=== PATIENT | female | born 1985 | race Caucasian/White ===

== ENCOUNTER → 2019-03-25 | Outpatient (CLI) | payer OTHER ==
[2019-03-25 13:51] LABS: BASO # 0.1 10^3/uL (0.0-0.2); EOS # 0.3 10^3/uL (0.0-0.50); HEMATOCRIT 40.5 % (36.0-47.0); HEMOGLOBIN 14.2 g/dl (12.0-15.5); LYMPH # 1.7 10^3/uL (1.5-4.5); LYMPH % 26.9 % (24.0-44.0); MEAN CORPUSCULAR HEMOGLOBIN 32.3 pg (27.0-33.0); MEAN CORPUSCULAR HGB CONC 35.1 g/dl (32.0-36.5); MEAN CORPUSCULAR VOLUME 92.3 fl (80.0-96.0); MONO # 0.5 10^3/uL (0.0-0.8); MONO % 8.6 % (0.0-5.0); NEUTROPHILS # 3.7 10^3/uL (1.8-7.7); NEUTROPHILS % 59.2 % (36.0-66.0); PLATELET COUNT, AUTOMATED 265 10^3/uL (150-450); RED BLOOD COUNT 4.39 10^6/uL (4.00-5.40); WHITE BLOOD COUNT 6.3 10^3/uL (4.0-10.0)
[2019-03-25 14:22] LABS: ALBUMIN 4.1 GM/DL (3.2-5.2); ALT/SGPT 16 U/L (12-78); BILIRUBIN,TOTAL 0.5 MG/DL (0.2-1.0); BLOOD UREA NITROGEN 15 MG/DL (7-18); CALCIUM LEVEL 9.1 MG/DL (8.5-10.1); CARBON DIOXIDE LEVEL 27 MEQ/L (21-32); CHLORIDE LEVEL 105 MEQ/L (98-107); CHOLESTEROL LEVEL 176 MG/DL (<200); CHOLESTEROL RISK RATIO 2.666 (<5); FREE T4 1.11 NG/DL (0.76-1.46); GLOMERULAR FILTRATION RATE > 60.0 (>60); GLUCOSE, FASTING 81 MG/DL (70-100); HDL CHOLESTEROL 66 MG/DL (>40); LDL CHOLESTEROL 90 MG/DL (<100); NON-HDL-C 110 MG/DL; POTASSIUM SERUM 4.3 MEQ/L (3.5-5.1); SODIUM LEVEL 138 MEQ/L (136-145); TOTAL PROTEIN 6.9 GM/DL (6.4-8.2); TRIGLYCERIDES LEVEL 100 MG/DL (<150)
== END ==
LOC: M LAB 12:43
PROVIDERS: ATTEND Physician Assistant
DX: I34.1 Nonrheumatic mitral (valve) prolapse (principal)

== ENCOUNTER → 2019-05-12 | Outpatient (CLI) | payer OTHER ==
[2019-05-12 14:36] LABS: ESTRADIOL 455.4 PG/ML; PROGESTERONE 37.1 NG/ML
== END ==
LOC: M LAB 13:14
PROVIDERS: ATTEND Obstetrics & Gynecology Reproductive Endocrinology
DX: Z31.41 Encounter for fertility testing (principal)

== ENCOUNTER → 2019-05-19 | Outpatient (CLI) | payer OTHER ==
[2019-05-19 09:30] LABS: HCG, SERUM QUANTITATIVE < 1.0 MIU/ML
[2019-05-19 09:38] LABS: PROGESTERONE 6.91 NG/ML
== END ==
LOC: M LAB 08:07
PROVIDERS: ATTEND Obstetrics & Gynecology Reproductive Endocrinology
DX: Z32.00 Encounter for pregnancy test, result unknown (principal)

== ENCOUNTER → 2019-12-08 | Outpatient (CLI) | payer OTHER ==
[2019-12-08 16:22] LABS: FREE T4 0.95 NG/DL (0.76-1.46); THYROID STIMULATING HORMONE 3.6 uIU/ML (0.358-3.740)
== END ==
LOC: M LAB 15:14
PROVIDERS: ATTEND Family Medicine
DX: Z13.29 Encounter for screening for other suspected endocrine disorder (principal)

== ENCOUNTER → 2019-12-28 | Outpatient (CLI) | payer OTHER ==
[2019-12-28 16:35] LABS: BASO # 0.1 10^3/uL (0.0-0.2); BASO % 1.8 % (0.0-1.0); EOS # 0.3 10^3/uL (0.0-0.5); EOS % 5.8 % (0.0-3.0); LYMPH # 2.1 10^3/uL (1.5-5.0); LYMPH % 38.2 % (24.0-44.0); MEAN CORPUSCULAR VOLUME 91.3 fl (80.0-96.0); MONO # 0.5 10^3/uL (0.0-0.8); MONO % 8.9 % (0.0-5.0); NEUTROPHILS # 2.5 10^3/uL (1.5-8.5); NEUTROPHILS % 45.1 % (36.0-66.0); PLATELET COUNT, AUTOMATED 273 10^3/uL (150-450); RED BLOOD COUNT 4.38 10^6/uL (4.00-5.40); WHITE BLOOD COUNT 5.5 10^3/uL (4.0-10.0)
== END ==
LOC: M LAB 16:05
PROVIDERS: ATTEND Family Medicine
DX: D72.1 Eosinophilia (principal)

== ENCOUNTER → 2020-01-14 | Outpatient (CLI) | payer OTHER | LOC: M LAB 11:35 | PROVIDERS: ATTEND Obstetrics & Gynecology Reproductive Endocrinology | DX: E28.9 Ovarian dysfunction, unspecified (principal) ==

== ENCOUNTER → 2020-01-20 | Outpatient (CLI) | payer OTHER ==
[2020-01-20 13:40] LABS: HCG, SERUM QUANTITATIVE < 1.0 MIU/ML
[2020-01-20 14:43] LABS: PROGESTERONE 8.13 NG/ML
== END ==
LOC: M LAB 12:57
PROVIDERS: ATTEND Obstetrics & Gynecology Reproductive Endocrinology
DX: Z32.00 Encounter for pregnancy test, result unknown (principal)

== ENCOUNTER → 2020-02-09 | Outpatient (CLI) | payer OTHER ==
[2020-02-09 15:25] LABS: PROGESTERONE 8.03 NG/ML
== END ==
LOC: M LAB 13:53
PROVIDERS: ATTEND Obstetrics & Gynecology Reproductive Endocrinology
DX: E28.9 Ovarian dysfunction, unspecified (principal)

== ENCOUNTER → 2020-08-31 | Outpatient (CLI) | payer OTHER ==
[2020-08-31 11:54] LABS: BASO # 0.1 10^3/uL (0.0-0.2); BASO % 1.4 % (0.0-1.0); EOS # 0.2 10^3/uL (0.0-0.5); EOS % 3.7 % (0.0-3.0); HEMATOCRIT 41.1 % (36.0-47.0); HEMOGLOBIN 14.1 g/dl (12.0-15.5); LYMPH # 1.6 10^3/uL (1.5-5.0); LYMPH % 25.1 % (24.0-44.0); MEAN CORPUSCULAR HEMOGLOBIN 31.1 pg (27.0-33.0); MEAN CORPUSCULAR HGB CONC 34.3 g/dl (32.0-36.5); MEAN CORPUSCULAR VOLUME 90.5 fl (80.0-96.0); MONO # 0.4 10^3/uL (0.0-0.8); MONO % 6.7 % (0.0-5.0); NEUTROPHILS % 62.9 % (36.0-66.0); PLATELET COUNT, AUTOMATED 273 10^3/uL (150-450); RED BLOOD COUNT 4.54 10^6/uL (4.00-5.40); WHITE BLOOD COUNT 6.3 10^3/uL (4.0-10.0)
[2020-08-31 12:27] LABS: ALT/SGPT 19 U/L (12-78); AMYLASE 65 U/L (25-115); BILIRUBIN,TOTAL 0.6 MG/DL (0.2-1.0); BLOOD UREA NITROGEN 15 MG/DL (7-18); CALCIUM LEVEL 9.3 MG/DL (8.5-10.1); CARBON DIOXIDE LEVEL 30 MEQ/L (21-32); CHLORIDE LEVEL 106 MEQ/L (98-107); CHOLESTEROL LEVEL 164 MG/DL (<200); CHOLESTEROL RISK RATIO 2.376 (<5); CREATININE FOR GFR 0.78 MG/DL (0.55-1.30); GLOMERULAR FILTRATION RATE > 60.0 (>60); GLUCOSE, FASTING 83 MG/DL (70-100); HDL CHOLESTEROL 69 MG/DL (>40); LDL CHOLESTEROL 81 MG/DL (<100); LIPASE 96 U/L (73-393); NON-HDL-C 95 MG/DL; POTASSIUM SERUM 4.5 MEQ/L (3.5-5.1); SODIUM LEVEL 139 MEQ/L (136-145); TOTAL PROTEIN 6.9 GM/DL (6.4-8.2); TRIGLYCERIDES LEVEL 71 MG/DL (<150)
[2020-08-31 12:33] LABS: TOTAL 25(OH) VITAMIN D 25.2 NG/ML (30.0-100.0)
== END ==
LOC: M LAB 10:32
PROVIDERS: ATTEND Family Medicine
DX: R10.11 Right upper quadrant pain (principal); F42.9 Obsessive-compulsive disorder, unspecified; Z13.0 Encounter for screening for diseases of the blood and blood-forming organs and certain disorders involving the immune mechanism; Z13.220 Encounter for screening for lipoid disorders

== ENCOUNTER → 2020-09-06 | Outpatient (CLI) | payer OTHER ==
--- NOTE | 2020-09-06 08:36 | REP ---
INDICATION: RUQ ABD PAIN COMPARISON: None. TECHNIQUE: Real time prado scale ultrasound examination using curved array transducer. FINDINGS: Liver is normal in contour, size, and echogenicity without focal hepatic lesions identified. Pancreas is incompletely evaluated due to interposed bowel gas. The gallbladder is normal and without gallstones, wall thickening, or pericholecystic fluid. No biliary ductal dilatation is appreciated and the common bile duct measures 4.0 mm diameter. Right kidney is normal in reniform shape without hydronephrosis and measures 8.9 x 5.6 x 3.3 cm. No ascites in the visualized right upper quadrant. IMPRESSION: Normal limited right upper quadrant ultrasound <Electronically signed by Marty Dean > 09/06/20 [id number]
== END ==
LOC: M RAD 08:03
PROVIDERS: ATTEND Family Medicine
DX: R10.11 Right upper quadrant pain (principal)

== ENCOUNTER → 2020-10-05 | Outpatient (CLI) | payer OTHER ==
[2020-10-05 11:05] LABS: ESTRADIOL 2185.1 PG/ML; LUTEINIZING HORMONE 16.3 mIU/mL; PROGESTERONE 1.73 NG/ML
== END ==
LOC: M LAB 09:47
PROVIDERS: ATTEND Obstetrics & Gynecology Reproductive Endocrinology
DX: E28.9 Ovarian dysfunction, unspecified (principal)

== ENCOUNTER → 2020-10-13 | Outpatient (CLI) | payer OTHER ==
[2020-10-13 12:10] LABS: PROGESTERONE 58.11 NG/ML
[2020-10-17 10:15] LABS: ESTRADIOL 1420.9 PG/ML
== END ==
LOC: M LAB 11:11
PROVIDERS: ATTEND Obstetrics & Gynecology Reproductive Endocrinology
DX: E28.9 Ovarian dysfunction, unspecified (principal)

== ENCOUNTER 2021-01-04 17:51 | Emergency (ER) | payer OTHER ==
[~2021-01-04] VITALS: Ht 157.5 cm; Wt 46.7 kg
[2021-01-04] MEDS ORDERED: BUSP10TA (18:15)
[2021-01-04] MEDS ORDERED: LEXA1TAB (18:15)
--- NOTE | 2021-01-04 19:39 | REP ---
INDICATION: ruq pain COMPARISON: 09/06/2020 TECHNIQUE: Real time prado scale ultrasound examination using curved array transducer. FINDINGS: Liver is normal in contour, size, and echogenicity without focal hepatic lesions identified. Pancreas is incompletely evaluated due to interposed bowel gas. The gallbladder is distended but without gallstones, wall thickening or pericholecystic fluid. No biliary ductal dilatation is appreciated and the common bile duct measures 3.2 mm diameter. Right kidney is normal in reniform shape without hydronephrosis and measures 9.7 x 5.1 x 3.0 cm. No ascites in the visualized right upper quadrant. IMPRESSION: Distended gallbladder is nonspecific. No further sonographic evidence to suggest acute cholecystitis. Correlation is recommended. <Electronically signed by Marty Dean > 01/04/211934
[2021-01-04 19:46] LABS: BASO # 0.1 10^3/uL (0.0-0.2); BASO % 1.7 % (0.0-1.0); EOS # 0.3 10^3/uL (0.0-0.5); EOS % 5.2 % (0.0-3.0); HEMATOCRIT 40.9 % (36.0-47.0); HEMOGLOBIN 14.2 g/dl (12.0-15.5); LYMPH % 33.8 % (24.0-44.0); MEAN CORPUSCULAR HEMOGLOBIN 31.7 pg (27.0-33.0); MEAN CORPUSCULAR HGB CONC 34.7 g/dl (32.0-36.5); MEAN CORPUSCULAR VOLUME 91.3 fl (80.0-96.0); MONO # 0.5 10^3/uL (0.0-0.8); MONO % 8.6 % (2.0-8.0); NEUTROPHILS # 2.9 10^3/uL (1.5-8.5); NEUTROPHILS % 50.5 % (36.0-66.0); PLATELET COUNT, AUTOMATED 255 10^3/uL (150-450); RED BLOOD COUNT 4.48 10^6/uL (4.00-5.40); WHITE BLOOD COUNT 5.8 10^3/uL (4.0-10.0)
[2021-01-04 20:17] LABS: ALBUMIN 3.8 GM/DL (3.2-5.2); ALT/SGPT 14 U/L (12-78); BILIRUBIN,DIRECT 0.1 MG/DL (0.0-0.2); BILIRUBIN,TOTAL 0.4 MG/DL (0.2-1.0); BLOOD UREA NITROGEN 7 MG/DL (7-18); CALCIUM LEVEL 9.1 MG/DL (8.5-10.1); CARBON DIOXIDE LEVEL 26 MEQ/L (21-32); CHLORIDE LEVEL 110 MEQ/L (98-107); CREATININE FOR GFR 0.71 MG/DL (0.55-1.30); GLOMERULAR FILTRATION RATE > 60.0 (>60); GLUCOSE, FASTING 86 MG/DL (70-100); LIPASE 153 U/L (73-393); POTASSIUM SERUM 4.1 MEQ/L (3.5-5.1); SODIUM LEVEL 141 MEQ/L (136-145); TOTAL PROTEIN 6.7 GM/DL (6.4-8.2)
[2021-01-04] MEDS ORDERED: ISOVUE-370 76% 100ML VIAL As Ordered ONE (20:30)
--- NOTE | 2021-01-04 21:02 | REPVR ---
PROCEDURE INFORMATION: Exam: CT Abdomen And Pelvis With Contrast Exam date and time: 01/04/2021 8:34 PM Age: 35 years old Clinical indication: Abdominal pain; Additional info: Upper abd pain TECHNIQUE: Imaging protocol: Computed tomography of the abdomen and pelvis with contrast. Radiation optimization: All CT scans at this facility use at least one of these dose optimization techniques: automated exposure control; mA and/or kV adjustment per patient size (includes targeted exams where dose is matched to clinical indication); or iterative reconstruction. Contrast material: ISOVUE 370; Contrast volume: 100 ml; Contrast route: INTRAVENOUS (IV); COMPARISON: Abdomen, limited US 09/06/2020 8:27 AM FINDINGS: Liver: Normal. No mass. Gallbladder and bile ducts: Hydropic gallbladder. Mild gallbladder wall thickening. No calculi demonstrated. Clinical correlation to exclude acalculous cholecystitis suggested. Pancreas: Normal. No ductal dilation. Spleen: Normal. No splenomegaly. Adrenal glands: Normal. No mass. Kidneys and ureters: Normal. No hydronephrosis. Stomach and bowel: Unremarkable. No obstruction. No mucosal thickening. Appendix: No evidence of appendicitis. Intraperitoneal space: There is minimal fluid in the cul-de-sac most likely physiologic. Clinical correlation to exclude other causes of cul-de-sac fluid suggested. Vasculature: Unremarkable. No abdominal aortic aneurysm. Lymph nodes: Unremarkable. No enlarged lymph nodes. Urinary bladder: Unremarkable as visualized. Reproductive: 2 cm involuting corpus luteal cyst right ovary. Sub septate uterus. Bones/joints: Mild central spinal stenosis L4-L5. Soft tissues: Unremarkable. IMPRESSION: 1. Hydropic gallbladder. Mild gallbladder wall thickening. No calculi demonstrated. Clinical correlation to exclude acalculous cholecystitis suggested. 2. Otherwise unremarkable. Electronically signed by: Errol Bateman On 01/04/2021 21:02:19 PM
[2021-01-04] MEDS ORDERED: KETOROLAC 30 MG/ML 1ML VIAL IV ONE (21:15)
[2021-01-04] MEDS ORDERED: metroNIDAZOLE (FLAGYL) 500MG TABLET PO ONE (21:20)
[2021-01-04] MEDS ORDERED: CIPROFLOXACIN 500MG TABLET PO ONE (21:20)
[2021-01-04] MEDS ORDERED: FLAG500T PO (21:24)
[2021-01-04] MEDS ORDERED: CIPR-249 PO (21:24)
[2021-01-04 22:11] VITALS: BP 115/68
== END 2021-01-04 22:00 | disposition home or self-care (01) ==
LOC: M ED 17:51
DX: K81.1 Chronic cholecystitis (principal); M48.061 Spinal stenosis, lumbar region without neurogenic claudication; F41.9 Anxiety disorder, unspecified; Z88.0 Allergy status to penicillin; Z79.899 Other long term (current) drug therapy
CPT/HCPCS: 74177; 76705; 80048; 80076; 81001; 83690; 85025; 96374; 99283; J1885; Q9967

== ENCOUNTER → 2021-01-26 | Outpatient (CLI) | payer OTHER ==
[~2021-01-26] MED LIST: BUSP10TA; CIPR-249 PO; FLAG500T PO; LEXA1TAB
== END ==
LOC: M LAB 13:10
PROVIDERS: ATTEND Physician Assistant
DX: R10.11 Right upper quadrant pain (principal)

== ENCOUNTER → 2021-02-14 | Outpatient (CLI) | payer OTHER ==
[~2021-02-14] MED LIST changes: +COQ-100C5 PO; +PREN200C PO; +PROBCAP14 PO
--- NOTE | 2021-02-15 08:57 | ECGEPIP ---
[facility] Test Date: 2021-02-14 Pat Name: ROLAND DAWN Department: Room: - Gender: Female Visual Lead: lilly : 1985 Requested By: Zachary ELLER Order Number: [id number] Reading MD: Julio C Ritchie Measurements Intervals [place] Rate: 72 P: 66 HI: 144 QRS: 79 QRSD: 78 T: 60 QT: 394 QTc: 431 Interpretive Statements Sinus rhythm with premature supraventricular complexes Comparison tracing not on file Electronically Signed on 02-15-2021 8:57:23 EDT by Julio C Ritchie
== END ==
LOC: M RAD 12:03
PROVIDERS: ATTEND Physician Assistant
DX: R10.11 Right upper quadrant pain (principal)

== ENCOUNTER 2021-02-16 08:22 | Day surgery (SDC) | payer OTHER ==
[~2021-02-16] VITALS: Ht 154.9 cm; Wt 46.9 kg
[~2021-02-16 08:22] MED LIST changes: +LR 1,000 ML IV ONE
[2021-02-16] MEDS ORDERED: fentaNYL 100 MCG/2 ML INJECTION (J3010) As Ordered ONE ×3 (08:23→11:59)
[2021-02-16] MEDS ORDERED: LIDOCAINE 2% 100MG/5ML SDV (FOR ANES.) As Ordered ONE (08:23)
[2021-02-16] MEDS ORDERED: dexameTHASONE 4 MG/ML 1ML VIAL (J1100 PER 1MG) As Ordered ONE (08:23)
[2021-02-16] MEDS ORDERED: ACETAMINOPHEN 1000MG 100ML IV BTL (OFIRMEV) (J0131 PER 10MG) As Ordered ONE (08:23)
[2021-02-16] MEDS ORDERED: propofoL 200 MG/20 ML VIAL As Ordered ONE (08:23)
[2021-02-16] MEDS ORDERED: ONDANSETRON 4MG/2ML VIAL As Ordered ONE ×2 (08:23→12:09)
[2021-02-16] MEDS ORDERED: MIDAZOLAM INJ 2MG/2ML VIAL (J2250 PER 1MG) As Ordered ONE (08:23)
[2021-02-16] MEDS ORDERED: KETOROLAC 60MG 2ML VIAL As Ordered ONE (08:23)
[2021-02-16] MEDS ORDERED: ROCURONIUM BROMIDE 50 MG/5 ML VIAL As Ordered ONE (08:23)
[2021-02-16] MEDS ORDERED: SUGAMMADEX SODIUM 500 MG/5 ML VIAL (BRIDION) As Ordered ONE (08:23)
[2021-02-16] MEDS ORDERED: BUPIVACAINE/EPIN 0.25% 30 ML VIAL As Ordered ONE (10:24)
[2021-02-16] MEDS ORDERED: GLYCOPYRROLATE INJ 0.2 MG/ML 2 ML VIAL As Ordered ONE (11:16)
[2021-02-16] MEDS: fentaNYL 100 MCG/2 ML INJECTION (J3010) IV PRN ×4 (11:59→12:14)
[2021-02-16] MEDS ORDERED: NORCO, ANEXSIA 5/325MG TABLET (HYDROcodone/ACETAMINOPHEN) PO PRN (12:15)
[2021-02-16] MEDS ORDERED: LR 1,000 ML IV SCH (12:15)
[2021-02-16] MEDS ORDERED: oxyCODONE 5MG TAB PO PRN (12:15)
[2021-02-16] MEDS ORDERED: ONDANSETRON 4MG/2ML VIAL IV PRN (12:15)
[2021-02-16] MEDS: HYDROMORPHONE HCL 0.5 MG/ 0.5 ML SYRINGE (J1170 PER 1) IV PRN ×4 (12:22→12:47)
--- NOTE | 2021-02-16 12:22 | RO ---
OPERATIVE NOTE DATE OF OPERATION: 02/16/2021 PREOPERATIVE DIAGNOSIS: Biliary dyskinesia. POSTOPERATIVE DIAGNOSIS: Biliary dyskinesia. PROCEDURE: Robotic cholecystectomy. 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 ANESTHESIA: General. EBL: 5. COMPLICATIONS: None. INDICATIONS FOR PROCEDURE: The patient is a 35-year-old female who presents with biliary dyskinesia, abnormal HIDA scan. Recommendation was to proceed with robotic cholecystectomy. Risks and benefits of the procedure not limited to but including bleeding, infection, hernias, damage to surrounding structures, need for further surgery were discussed in detail with the patient, informed consent obtained, procedure was planned. DESCRIPTION OF PROCEDURE: The patient was brought back to operating room 7, after sufficient sedation the abdomen was sterilely prepped and draped. Time out was done to confirm proper patient, proper procedure. Following that 8 mm incision was made in the left upper quadrant, Veress needle was inserted and abdomen was insufflated to 15 mmHg. Veress needle was then removed and 8 mm Optiview port was used to gain access to the abdomen. Once the abdomen was entered three more ports were placed across the right upper quadrant of the abdomen. The robot was docked to the ports. From the console the gallbladder was elevated up to her right shoulder. Upon elevation of the gallbladder I was able to easily identify all the critical structures prior to any dissection. With simple dissection through the peritoneal surface I was able to dissect the artery and duct cleanly, they were both doubly clipped and cut. The gallbladder was then dissected free from the gallbladder fossa, removed intact and placed inside 5 mm Endo Catch bag. The gallbladder was then brought out through the right lateral port site. Abdomen was desufflated. Skin incisions were then closed with 4-0 Vicryl subcuticular sutures. The abdomen was cleaned and dried; Steri-Strips and 4 x 4 tapes were applied. This ended the procedure. KEISHA
[2021-02-16] MEDS ORDERED: METOCLOPRAMIDE INJ 10MG/2ML VIAL (J2765 PER 1) As Ordered ONE (12:26)
[2021-02-16] MEDS ORDERED: METOCLOPRAMIDE INJ 10MG/2ML VIAL (J2765 PER 1) IV PRN (12:35)
[2021-02-16 14:05] VITALS: BP 115/73
== END 2021-02-16 14:10 | disposition home or self-care (01) ==
LOC: M SDC 08:22
PROVIDERS: ATTEND Surgery
DX: K82.8 Other specified diseases of gallbladder (principal); K66.0 Peritoneal adhesions (postprocedural) (postinfection); I34.1 Nonrheumatic mitral (valve) prolapse; Z94.0 Kidney transplant status
CPT/HCPCS: 47562; 81025; 88304; 96374; 96375; J0131; J1100; J1170; J1885; J2250; J2405; J2765; J3010; S2900

== ENCOUNTER → 2021-03-23 | Outpatient (REF) | payer OTHER ==
[~2021-03-23] MED LIST changes: -LR 1,000 ML IV ONE
== END ==
LOC: M LAB REF 15:00
PROVIDERS: ATTEND Physician Assistant
DX: N39.0 Urinary tract infection, site not specified (principal)

== ENCOUNTER → 2021-04-12 | Outpatient (CLI) | payer OTHER ==
[2021-04-12 11:23] LABS: BASO # 0.1 10^3/uL (0.0-0.2); BASO % 0.9 % (0.0-1.0); EOS # 0.5 10^3/uL (0.0-0.5); EOS % 4.4 % (0.0-3.0); HEMATOCRIT 42.1 % (36.0-47.0); HEMOGLOBIN 14.4 g/dl (12.0-15.5); LYMPH # 1.8 10^3/uL (1.5-5.0); LYMPH % 15.1 % (24.0-44.0); MEAN CORPUSCULAR HEMOGLOBIN 32.4 pg (27.0-33.0); MEAN CORPUSCULAR HGB CONC 34.2 g/dl (32.0-36.5); MEAN CORPUSCULAR VOLUME 94.6 fl (80.0-96.0); MONO % 8.2 % (2.0-8.0); NEUTROPHILS # 8.6 10^3/uL (1.5-8.5); PLATELET COUNT, AUTOMATED 318 10^3/uL (150-450); RED BLOOD COUNT 4.45 10^6/uL (4.00-5.40); WHITE BLOOD COUNT 12.1 10^3/uL (4.0-10.0)
[2021-04-12 12:03] LABS: ALBUMIN 3.7 GM/DL (3.2-5.2); ALT/SGPT 93 U/L (12-78); BILIRUBIN,TOTAL 0.5 MG/DL (0.2-1.0); BLOOD UREA NITROGEN 11 MG/DL (7-18); CALCIUM LEVEL 9.2 MG/DL (8.5-10.1); CARBON DIOXIDE LEVEL 28 MEQ/L (21-32); CHLORIDE LEVEL 106 MEQ/L (98-107); CREATININE FOR GFR 0.64 MG/DL (0.55-1.30); FREE T4 1.01 NG/DL (0.76-1.46); GLOMERULAR FILTRATION RATE > 60.0 (>60); GLUCOSE, FASTING 85 MG/DL (70-100); SODIUM LEVEL 139 MEQ/L (136-145); TOTAL PROTEIN 6.7 GM/DL (6.4-8.2)
[2021-04-12 12:04] LABS: THYROID PEROXIDASE ANTIBODY 98.4 U/ML (<60.0); TOTAL 25(OH) VITAMIN D 51.5 NG/ML (30.0-100.0)
[2021-04-18 16:09] LABS: THRYOGLOBULIN ANTIBODIES (ATA) 1.7 IU/mL (0.0-0.9); THYROGLOBULIN RIA 7.9 ng/mL (.)
== END ==
LOC: M LAB 10:30
PROVIDERS: ATTEND Physician Assistant
DX: Z13.29 Encounter for screening for other suspected endocrine disorder (principal)

== ENCOUNTER → 2021-04-20 | Outpatient (CLI) | payer OTHER ==
[2021-04-20 12:58] LABS: ESTRADIOL 1732.7 PG/ML; PROGESTERONE 86.84 NG/ML
== END ==
LOC: M LAB 10:04
PROVIDERS: ATTEND Obstetrics & Gynecology Reproductive Endocrinology
DX: Z31.49 Encounter for other procreative investigation and testing (principal)

== ENCOUNTER → 2021-04-27 | Outpatient (CLI) | payer OTHER ==
[2021-04-27 10:36] LABS: PROGESTERONE 94.6 NG/ML
== END ==
LOC: M LAB 08:45
PROVIDERS: ATTEND Obstetrics & Gynecology Reproductive Endocrinology
DX: Z32.00 Encounter for pregnancy test, result unknown (principal)

== ENCOUNTER → 2021-04-30 | Outpatient (CLI) | payer OTHER ==
[2021-04-30 12:27] LABS: THYROID STIMULATING HORMONE 2.16 uIU/ML (0.358-3.740)
[2021-04-30 12:32] LABS: ESTRADIOL 2283.5 PG/ML
[2021-04-30 13:04] LABS: PROGESTERONE 95.07 NG/ML
== END ==
LOC: M LAB 09:36
PROVIDERS: ATTEND Obstetrics & Gynecology Reproductive Endocrinology
DX: Z32.01 Encounter for pregnancy test, result positive (principal)

== ENCOUNTER → 2021-05-07 | Outpatient (CLI) | payer OTHER ==
[2021-05-07 14:23] LABS: ESTRADIOL 2529.8 PG/ML
[2021-05-07 14:50] LABS: PROGESTERONE 78.24 NG/ML
== END ==
LOC: M PLALAB 12:07
PROVIDERS: ATTEND Obstetrics & Gynecology Reproductive Endocrinology
DX: O09.00 Supervision of pregnancy with history of infertility, unspecified trimester (principal)

== ENCOUNTER → 2021-05-07 | Outpatient (CLI) | payer OTHER ==
--- NOTE | 2021-05-07 12:19 | REP ---
INDICATION: AFTER POSITIVE RESULT,. COMPARISON: None. TECHNIQUE: Transvesical and transvaginal imaging FINDINGS: Within the uterus there is an anechoic structure with increased echoes surrounding it consistent with a decidual reaction. Within the gestational sac there is a tiny anechoic structure consistent with a yolk sac There is no evidence of echogenic material that would be considered consistent with a pole. Doppler shows no evidence of cardiac activity. The mean gestational sac diameter is consistent with a 6 week 0 day gestational age. Evaluation of the maternal adnexal spaces showed bilateral complex ovarian cysts the largest on the right measures 2.7 cm and on the left 2.6 cm anyanyone of these could represent a hemorrhagic corpus luteum cyst. IMPRESSION: Early OB ultrasound as described above. Follow-up is recommended. <Electronically signed by Julian Dover > 05/07/21 [id number]
== END ==
LOC: M WHC 11:10
PROVIDERS: ATTEND Obstetrics & Gynecology Reproductive Endocrinology
DX: Z32.01 Encounter for pregnancy test, result positive (principal); Z3A.01 Less than 8 weeks gestation of pregnancy

== ENCOUNTER → 2021-05-17 | Outpatient (CLI) | payer OTHER ==
--- NOTE | 2021-05-17 08:36 | REPVR ---
PROCEDURE INFORMATION: Exam: US , Transvaginal Exam date and time: 05/17/2021 7:42 AM Age: 36 years old Clinical indication: Screening exam; Other: Dating viability; ; Additional info: Dating and viability PT needs labs after US TECHNIQUE: Imaging protocol: Real-time transvaginal obstetrical ultrasound of the maternal pelvis with image documentation. Transvaginal imaging was used for better evaluation of the fetus, adnexa, and/or cervix. COMPARISON: US OB<14WKS SINGLE OR 1ST GEST 05/07/2021 11:40 AM FINDINGS: Gestation: There is a single live intrauterine with a gestational sac, pole, and yolk sac. Flomaton-rump length is 8 mm consistent with 6 week and 6 day and an estimated date of delivery of 2021. This correlates favorably with the dating by last menstrual period. heart rate of 131 bpm. MATERNAL: Uterus: No hematoma in the uterus. Right adnexa: The right ovary is 2.9 cm with a complex cystic focus measuring up to 17 mm. Preserved Doppler flow. Left adnexa: The left ovary is 3.8 cm with some complex echogenicity likely cysts within measuring up to 23 mm. Preserved Doppler flow. Intraperitoneal space: No free fluid. IMPRESSION: Live intrauterine at 6 weeks and 6 days. Complex adnexal cysts which can be followed per clinical indications. Electronically signed by: Luis F Armas On 05/17/2021 08:36:10 AM
[2021-05-17 11:04] LABS: ESTRADIOL 3054.3 PG/ML; PROGESTERONE 117.8 NG/ML
== END ==
LOC: M RAD 06:40
PROVIDERS: ATTEND Obstetrics & Gynecology Reproductive Endocrinology
DX: O09.00 Supervision of pregnancy with history of infertility, unspecified trimester (principal); Z3A.01 Less than 8 weeks gestation of pregnancy

== ENCOUNTER → 2021-05-30 | Outpatient (CLI) | payer OTHER ==
--- NOTE | 2021-05-30 14:14 | REP ---
INDICATION: DATING AND VIABILITY F/U NEEDS LABS AFTER US. COMPARISON: 05/17/2021. TECHNIQUE: Transvaginal pelvic ultrasound. FINDINGS: There is a single living intrauterine gestation. The estimated gestational age based on today's crown-rump length of 22 mm is 8 weeks 6 days EDC 01/03/2022. Based on the prior ultrasound estimated date of confinement was 01/07/2022. The heart rate is 165 beats per minute. Complex cystic structures are seen in each ovary, maximum diameter on the left 1.5 cm and on the right 1.7 cm. There is no evidence of ovarian torsion with duplex Doppler evaluation. A cystic structure is seen along the umbilical cord measuring approximately 7 mm in diameter, possibly representing an umbilical cord cyst. IMPRESSION: Single living intrauterine gestation as discussed in detail above. <Electronically signed by Paras Hale > 05/30/21 [id number]
[2021-05-30 15:14] LABS: ESTRADIOL 2807.5 PG/ML; PROGESTERONE 56.78 NG/ML
== END ==
LOC: M RAD 12:48
PROVIDERS: ATTEND Obstetrics & Gynecology Reproductive Endocrinology
DX: O09.01 Supervision of pregnancy with history of infertility, first trimester (principal); Z3A.08 8 weeks gestation of pregnancy

== ENCOUNTER → 2021-06-08 | Outpatient (CLI) | payer OTHER ==
[2021-06-08 17:15] LABS: HEMATOCRIT 37.4 % (36.0-47.0); HEMOGLOBIN 13.1 g/dl (12.0-15.5); MEAN CORPUSCULAR HEMOGLOBIN 32.4 pg (27.0-33.0); MEAN CORPUSCULAR VOLUME 92.6 fl (80.0-96.0); PLATELET COUNT, AUTOMATED 293 10^3/uL (150-450); RED BLOOD COUNT 4.04 10^6/uL (4.00-5.40); WHITE BLOOD COUNT 12.7 10^3/uL (4.0-10.0)
[2021-06-08 18:23] LABS: HEPATITIS C VIRUS ABY INDEX < 0.0 INDEX (<0.8); HIV 1&2 SCREEN CENTAUR NEGATIVE (NEGATIVE)
[2021-06-08 18:59] LABS: GC DNA AMPLIFICATION NEGATIVE (NEGATIVE)
== END ==
LOC: M PLALAB 14:19
PROVIDERS: ATTEND Specialist
DX: Z34.81 Encounter for supervision of other normal pregnancy, first trimester (principal); Z3A.00 Weeks of gestation of pregnancy not specified

== ENCOUNTER → 2021-07-03 | Outpatient (CLI) | payer OTHER ==
[2021-07-03 18:16] LABS: FREE T4 1.08 NG/DL (0.76-1.46); THYROID STIMULATING HORMONE 0.575 uIU/ML (0.358-3.740)
== END ==
LOC: M PLALAB 15:51
PROVIDERS: ATTEND Specialist
DX: Z34.02 Encounter for supervision of normal first pregnancy, second trimester (principal); Z3A.00 Weeks of gestation of pregnancy not specified

== ENCOUNTER → 2021-07-12 | Outpatient (REF) | payer OTHER ==
[~2021-07-12] MED LIST changes: +FISH1000 PO; +NITR100C2
== END ==
LOC: M SFHCWAGY 17:27
PROVIDERS: ATTEND Advanced Practice Midwife
DX: Z36.2 Encounter for other antenatal screening follow-up (principal); O26.899 Other specified pregnancy related conditions, unspecified trimester; Z3A.00 Weeks of gestation of pregnancy not specified
CPT/HCPCS: 87088; 87186; G0463

== ENCOUNTER 2021-07-29 18:34 | Emergency (ER) | payer OTHER ==
[~2021-07-29] VITALS: Ht 154.9 cm; Wt 53.5 kg
[~2021-07-29 18:34] MED LIST changes: -FISH1000 PO; -NITR100C2
[2021-07-29] MEDS ORDERED: FISH1000 PO (18:50)
[2021-07-29] MEDS ORDERED: NITR100C2 (18:50)
[2021-07-29 19:23] VITALS: BP 117/70
[2021-07-29 19:46] LABS: BASO # 0.1 10^3/uL (0.0-0.2); BASO % 0.7 % (0.0-1.0); EOS # 0.2 10^3/uL (0.0-0.5); EOS % 2.5 % (0.0-3.0); HEMATOCRIT 33.6 % (36.0-47.0); LYMPH # 1.7 10^3/uL (1.5-5.0); LYMPH % 18.5 % (24.0-44.0); MEAN CORPUSCULAR HEMOGLOBIN 33.2 pg (27.0-33.0); MEAN CORPUSCULAR HGB CONC 35.7 g/dl (32.0-36.5); MEAN CORPUSCULAR VOLUME 93.1 fl (80.0-96.0); MONO # 0.7 10^3/uL (0.0-0.8); MONO % 7.2 % (2.0-8.0); NEUTROPHILS # 6.7 10^3/uL (1.5-8.5); NEUTROPHILS % 70.7 % (36.0-66.0); PLATELET COUNT, AUTOMATED 275 10^3/uL (150-450); RED BLOOD COUNT 3.61 10^6/uL (4.00-5.40); WHITE BLOOD COUNT 9.4 10^3/uL (4.0-10.0)
[2021-07-29 20:09] LABS: ALBUMIN 3.1 GM/DL (3.2-5.2); ALT/SGPT 55 U/L (12-78); BILIRUBIN,DIRECT < 0.1 MG/DL (0.0-0.2); BILIRUBIN,TOTAL 0.2 MG/DL (0.2-1.0); BLOOD UREA NITROGEN 8 MG/DL (7-18); CARBON DIOXIDE LEVEL 27 MEQ/L (21-32); CHLORIDE LEVEL 106 MEQ/L (98-107); CREATININE FOR GFR 0.48 MG/DL (0.55-1.30); GLOMERULAR FILTRATION RATE > 60.0 (>60); GLUCOSE, FASTING 122 MG/DL (70-100); POTASSIUM SERUM 3.5 MEQ/L (3.5-5.1); SODIUM LEVEL 138 MEQ/L (136-145); TOTAL PROTEIN 6.7 GM/DL (6.4-8.2)
[2021-07-29 20:16] LABS: APPEARANCE, URINE HAZY (CLEAR); BACTERIA, URINE AUTO NEGATIVE (NEGATIVE); BILIRUBIN, URINE AUTO NEGATIVE (NEGATIVE); BLOOD, URINE BLOOD NEGATIVE (NEGATIVE); COLOR, URINE YELLOW (YELLOW); GLUCOSE, URINE (UA) AUTO 1+ mg/dL (NEGATIVE); KETONE, URINE AUTO NEGATIVE (NEGATIVE); LEUKOCYTE ESTERASE, URINE AUTO TRACE (NEGATIVE); NITRITE, URINE AUTO NEGATIVE (NEGATIVE); PROTEIN, URINE AUTO NEGATIVE (NEGATIVE); RBC, URINE AUTO 0 /HPF (0-3); SPECIFIC GRAVITY URINE AUTO 1.015 (1.002-1.035); SQUAMOUS EPITHELIAL CELL UR AU 1 /HPF (0-6); WBC, URINE AUTO 0 /HPF (0-3)
--- NOTE | 2021-07-29 22:24 | REPVR ---
PROCEDURE INFORMATION: Exam: US Retroperitoneal; Complete; Kidneys and Bladder Exam date and time: 07/29/2021 8:28 PM Age: 36 years old Clinical indication: Abdominal pain; Flank; Right; ; Additional info: R flank pain, tx for e coli UTI, concern for hydronephrosis TECHNIQUE: Imaging protocol: Real-time ultrasound of the retroperitoneum with image documentation. Complete exam focused on the kidneys and bladder. COMPARISON: Abdomen, limited US 09/06/2020 8:27 AM FINDINGS: Right kidney: 10.2 cm in length. No stones. Mild prominence of the right renal collecting system, likely physiologic. Left kidney: 10.9 cm in length. No stones. No hydronephrosis. Urinary bladder: Unremarkable. Bilateral ureteral jets identified. IMPRESSION: Mild prominence of the right renal collecting system, likely physiologic. Electronically signed by: Melvin Melgar On 07/29/2021 22:23:47 PM
== END 2021-07-29 21:06 | disposition home or self-care (01) ==
LOC: M ED 18:34
DX: O26.892 Other specified pregnancy related conditions, second trimester (principal); R10.31 Right lower quadrant pain; O99.810 Abnormal glucose complicating pregnancy; N80.9 Endometriosis, unspecified; Z87.42 Personal history of other diseases of the female genital tract; Z86.19 Personal history of other infectious and parasitic diseases; Z90.49 Acquired absence of other specified parts of digestive tract; Z3A.17 17 weeks gestation of pregnancy

== ENCOUNTER → 2021-08-22 | Outpatient (REF) | payer OTHER ==
[~2021-08-22] MED LIST changes: +FISH1000 PO; +NITR100C2
== END ==
LOC: M LAB REF 14:04
PROVIDERS: ATTEND Physician Assistant
DX: D23.71 Other benign neoplasm of skin of right lower limb, including hip (principal); D23.5 Other benign neoplasm of skin of trunk; D23.4 Other benign neoplasm of skin of scalp and neck

== ENCOUNTER → 2021-08-30 | Outpatient (REF) | payer OTHER | LOC: M LAB REF 13:59 | PROVIDERS: ATTEND Nurse Practitioner Family | DX: D23.72 Other benign neoplasm of skin of left lower limb, including hip (principal) | CPT/HCPCS: 11104; 88305; G0463 ==

== ENCOUNTER → 2021-09-25 | Outpatient (CLI) | payer OTHER ==
[2021-09-25 13:36] LABS: HEMATOCRIT 35.6 % (36.0-47.0); HEMOGLOBIN 11.9 g/dl (12.0-15.5); MEAN CORPUSCULAR HEMOGLOBIN 32.3 pg (27.0-33.0); MEAN CORPUSCULAR HGB CONC 33.4 g/dl (32.0-36.5); MEAN CORPUSCULAR VOLUME 96.7 fl (80.0-96.0); PLATELET COUNT, AUTOMATED 232 10^3/uL (150-450); RED BLOOD COUNT 3.68 10^6/uL (4.00-5.40); WHITE BLOOD COUNT 8.1 10^3/uL (4.0-10.0)
[2021-09-25 14:51] LABS: GC DNA AMPLIFICATION NEGATIVE (NEGATIVE)
== END ==
LOC: M PLALAB 09:04
PROVIDERS: ATTEND Specialist
DX: Z34.02 Encounter for supervision of normal first pregnancy, second trimester (principal)

== ENCOUNTER → 2021-10-09 | Outpatient (CLI) | payer OTHER | LOC: M LAB 08:08 | PROVIDERS: ATTEND Specialist | DX: Z34.02 Encounter for supervision of normal first pregnancy, second trimester (principal); Z3A.00 Weeks of gestation of pregnancy not specified ==